=== PATIENT | female | born 1945 | race Caucasian/White ===

== ENCOUNTER → 2020-10-29 12:13 | Outpatient (CLI) | payer MEDICARE, SELFPAY ==
--- NOTE | ~2020-10-29 | MM_ITS ---
EXAMINATION: MM screening [facility] BI w jessi HISTORY: Screening mammogram TECHNIQUE: Craniocaudal and mediolateral oblique 3-D tomosynthesis images were obtained and synthetic 2-D images were generated. CAD analysis was submitted and interpreted. COMPARISON: 08/27/2019, 07/27/2018, 07/07/2017 BREAST PARENCHYMAL COMPOSITION: The breasts are heterogeneously dense, which may obscure small masses . FINDINGS: There is no evidence of suspicious mass, calcification, or architectural distortion to sugg est malignancy in either breast. There has been no suspicious interval change. IMPRESSION: 1. No mammographic evidence of malignancy. 2. Recommend routine screening mammography in one year. BI-RADS Category 1: Negative Reviewed, dictated and finalized at location A. CIATE DIRECTOR OF SALES
== END ==
PROVIDERS: PCP Family Medicine; Visit Provider Family Medicine
DX: Z12.31 Encounter for screening mammogram for malignant neoplasm of breast (principal)
CPT/HCPCS: 77063; 77067

== ENCOUNTER → 2020-12-11 10:19 | Outpatient (CLI) | payer MEDICARE, SELFPAY ==
--- NOTE | ~2020-12-11 | DEXA_ITS ---
Bone Density Report Name: Laverne Lewis Age: 75 Sex: Female Ethnicity: White Date of : 1945 Indication: postmenopausal osteoporosis; monitoring treatment; height loss; Referring Provider: Marek Mart Study: Bone densitometry was performed. Exam Date: December 11, 2020 Accession number: [id number] Bone Density: Region BMD T-score Z-score Classification AP Spine (L1, L2, L3) 0.738 -2.5 -0.2 Osteoporosis Femoral Neck (Left) 0.633 -1.9 0.1 Osteopenia Total Hip (Left) 0.771 -1.4 0.3 Osteopenia Femoral Neck (Right) 0.585 -2.4 -0.4 Osteopenia Total Hip (Right) 0.732 -1.7 0.0 Osteopenia Total Hip Mean 0.752 -1.6 0.2 Osteopenia World Health Organization criteria for BMD impression classify patients as: Normal (T-score at or above -1.0), Osteopenia (T-score between -1.0 and -2.5), or Osteoporosis (T-score at or below -2.5). 10-year Fracture Risk: FRAX not reported because: Some T-score for Spine Total or Hip Total or Femoral Neck at or below -2.5 Treated for osteoporosis Previous Exams: Region Exam Age BMD T-score BMD Change BMD Change Date g/cm2 vs Baseline vs Previous AP Spine(L1, L2, L3) 12/11/2020 75 0.738 -2.5 -0.100 0.083 05/12/2016 70 0.656 -3.3 -0.182 -0.018 06/11/2013 67 0.673 -3.1 -0.165 -0.063* 12/18/2010 65 0.737 -2.6 -0.101 0.010 06/12/2008 62 0.727 -2.6 -0.111 -0.054 10/01/2005 59 0.781 -2.2 -0.057 -0.057 07/31/2003 57 0.838 -1.6 Total Hip(Left) 12/11/2020 75 0.771 -1.4 0.028 0.022 05/12/2016 70 0.749 -1.6 0.006 0.034* 06/11/2013 67 0.714 -1.9 -0.028 -0.002 12/18/2010 65 0.716 -1.9 -0.027 -0.038* 06/12/2008 62 0.754 -1.5 0.011 -0.042* 10/01/2005 59 0.796 -1.2 0.054 0.054 07/31/2003 57 0.743 -1.6 Total Hip(Right) 12/11/2020 75 0.732 -1.7 -0.004 0.043* 05/12/2016 70 0.689 -2.1 -0.047 -0.038* 06/11/2013 67 0.727 -1.8 -0.009 -0.017 12/18/2010 65 0.744 -1.6 0.008 -0.019 06/12/2008 62 0.763 -1.5 0.027 -0.017 10/01/2005 59 0.779 -1.3 0.044 0.044 07/31/2003 57 0.736 -1.7 *Denotes significance at 95% confidence level, LSC for AP Spine = 0.022 g/cm2, LSC for Total Hip = 0.027 g/cm2 Clinical Information Provided by Patient:
== END ==
PROVIDERS: PCP Family Medicine; Visit Provider Physician Assistant
DX: Z78.0 Asymptomatic menopausal state (principal); M81.0 Age-related osteoporosis without current pathological fracture; M85.852 Other specified disorders of bone density and structure, left thigh; M85.851 Other specified disorders of bone density and structure, right thigh
CPT/HCPCS: 77080

== ENCOUNTER → 2022-01-22 08:08 | Outpatient (CLI) | payer MEDICARE, SELFPAY ==
--- NOTE | ~2022-01-22 | MR_ITS ---
EXAMINATION: MR lumbar spine wo [facility] EXAM DATE: 01/22/2022 08:36 INDICATION: Lumbar radiculopathy . TECHNIQUE: Multi-sequential, multiplanar MR images of the lumbar spine were obtained without contrast . Sagittal T1, T2, T2 fat saturation images. Axial T2 weighted images. Comparison is made to prior examination from 01/23/2016. FINDINGS: There is moderate to severe disc disease L3-S1, moderate at L2-3. The nerve roots below the conus medullaris are again clumped consistent with chronic arachnoiditis, no change in appearance. T here is 3 mm anterolisthesis L4 on L5, 3 mm retrolisthesis L5 on S1. Conus terminates at the L1 level . Paraspinal soft tissue is unremarkable. Level by level evaluation: T12-L1: Disc does not extend beyond the endplate margin. Facet arthropathy: None. Neural foraminal stenosis: No stenosis. Central canal stenosis: No stenosis. L1-L2: Disc does not extend beyond the endplate margin. Facet arthropathy: None. Neural foraminal stenosis: No stenosis. Central canal stenosis: No stenosis. L2-L3: There is a mild to moderate diffuse disc bulge. Facet arthropathy: Mild to moderate. Neural foraminal stenosis: Moderate right, mild left. Central canal stenosis: Mild. L3-L4: There is a moderate diffuse disc bulge. Facet arthropathy: Moderate to severe right, moderate left. Neural foraminal stenosis: Moderate right, mild to moderate left. Central canal stenosis: Moderate. L4-L5: There is a moderate diffuse disc bulge. Facet arthropathy: Moderate to severe right, mild to moderate left. Neural foraminal stenosis: Severe left, mild to moderate right. Central canal stenosis: Posterior decompression, laminotomies. L5-S1: There is a moderate diffuse disc bulge. Facet arthropathy: Moderate. Neural foraminal stenosis: No stenosis. Central canal stenosis: Moderate to severe right, moderate left. There has been noticeable progression in spondylosis compared to 2016. IMPRESSION: 1. L4-5 severe left neural foraminal stenosis. 2. Moderate to severe L3-S1 disc disease, progression compared to prior study. 3. Chronic arachnoiditis. Reviewed, dictated and finalized at location B.
== END ==
PROVIDERS: PCP Family Medicine; Visit Provider Nurse Practitioner Family
DX: M54.16 Radiculopathy, lumbar region (principal); M48.061 Spinal stenosis, lumbar region without neurogenic claudication; M51.87 Other intervertebral disc disorders, lumbosacral region; G03.1 Chronic meningitis
CPT/HCPCS: 72148

== ENCOUNTER → 2022-02-02 13:49 | Outpatient (CLI) | payer MEDICARE, SELFPAY ==
--- NOTE | ~2022-02-02 | MM_ITS ---
EXAMINATION: MM screening [facility] BI w jessi HISTORY: 10/29/2020, 08/2019, 07/27/2018 TECHNIQUE: Craniocaudal and mediolateral oblique 3-D tomosynthesis images were obtained and synthetic 2-D images were generated. CAD analysis was submitted and interpreted. COMPARISON: 10/29/2020, 08/2019, 07/27/2018 bilateral screening mammogram examinations BREAST PARENCHYMAL COMPOSITION: The breasts are heterogeneously dense, which may obscure small masses . FINDINGS: There is no evidence of suspicious mass, calcification, or architectural distortion to sugg est malignancy in either breast. There has been no suspicious interval change. IMPRESSION: 1. No mammographic evidence of malignancy. 2. Recommend routine screening mammography in one year. BI-RADS Category 1: Negative Reviewed, dictated and finalized at location A.
== END ==
PROVIDERS: PCP Family Medicine; Visit Provider Family Medicine
DX: Z12.31 Encounter for screening mammogram for malignant neoplasm of breast (principal)
CPT/HCPCS: 77063; 77067

== ENCOUNTER → 2023-04-05 14:43 | Outpatient (CLI) | payer MEDICARE, SELFPAY ==
--- NOTE | ~2023-04-05 | MM_ITS ---
EXAMINATION: MM screening [facility] BI w jessi HISTORY: Screening mammogram TECHNIQUE: Craniocaudal and mediolateral oblique 3-D tomosynthesis images were obtained and synthetic 2-D images were generated. CAD analysis was submitted and interpreted. COMPARISON: February 02, 2022, October 29, 2020, August 27, 2019 bilateral screening mammogram examinati ons BREAST PARENCHYMAL COMPOSITION: The breasts are heterogeneously dense, which may obscure small masses . FINDINGS: There is asymmetric density in the anterior inner left breast on craniocaudal view. Diagnos tic left mammogram is recommended, with ultrasound if required. Otherwise there is no evidence of suspicious mass, calcification, or architectural distortion to sugg est malignancy in either breast. There has been no other suspicious interval change. IMPRESSION: 1. Asymmetry in the anterior inner left breast on CC projection 2. Diagnostic left mammogram is recommended, with ultrasound if required BI-RADS Category 0: Incomplete: Needs additional imaging evaluation. Reviewed, dictated and finalized at location A.
== END ==
PROVIDERS: PCP Emergency Medicine; Visit Provider Nurse Practitioner Family
DX: Z12.31 Encounter for screening mammogram for malignant neoplasm of breast (principal); R92.8 Other abnormal and inconclusive findings on diagnostic imaging of breast
CPT/HCPCS: 77063; 77067

== ENCOUNTER 2023-04-30 09:27 | Outpatient (CLI) | payer MEDICARE, SELFPAY ==
--- NOTE | ~2023-04-30 | DEXA_ITS ---
Bone Density Report Name: PAPO CASTILLO Age: 77 Sex: Female Ethnicity: White Date of : 1945 Indication: postmenopausal; screening for osteoporosis; prior fracture; Referring Provider: ISAIAH VANEGAS Study: Bone densitometry was performed. Exam Date: April 30, 2023 Accession number: [id number] Bone Density: Region BMD T-score Z-score Classification AP Spine(L1-L4) 0.881 -1.5 1.0 Osteopenia Femoral Neck (Left) 0.546 -2.7 -0.6 Osteoporosis Total Hip (Left) 0.726 -1.8 0.1 Osteopenia Femoral Neck (Right) 0.590 -2.3 -0.2 Osteopenia Total Hip (Right) 0.722 -1.8 0.1 Osteopenia Total Hip Mean 0.724 -1.8 0.1 Osteopenia World Health Organization criteria for BMD impression classify patients as: Normal (T-score at or above -1.0), Osteopenia (T-score between -1.0 and -2.5), or Osteoporosis (T-score at or below -2.5). 10-year Fracture Risk: FRAX not reported because: Some T-score for Spine Total or Hip Total or Femoral Neck at or below -2.5 Treated for osteoporosis Clinical Information Provided by Patient: Has had a low trauma fracture Is being treated for osteoporosis Has used the following medications: Prolia (i.e. denosumab) Patient maximum height was 60 Menopause Age: 51 No regular weight bearing exercise Does not regularly consume dairy products Drinks caffeinated beverages Onset of menses at age 14 Number of children 2 Missed period for more than 6 months in a row Impression: The patient has established osteoporosis, based on the Left Femoral Neck T-score and the existence of a prior fracture. The patient has risk factors, including: previous fracture. Discussion: It is important to ask patients whether they are taking their medications and to encourage continued and appropriate compliance with their osteoporosis therapies to reduce fracture risk. It is also important to review their risk factors and encourage appropriate calcium and vitamin D intakes, exercise, fall prevention and other lifestyle measures. Follow-Up: Consider a repeat BMD and Vertebral Fracture Assessment (VFA) exam in 2 years or sooner if medically necessary, to reassess this patient's status. Reported by: JERMAINE on 04/30/2023 10:11:00 AM. Reviewed, dictated and finalized at location Inge TAO
== END 2023-04-30 09:28 | disposition home or self-care (01) ==
LOC: ANHIMG 09:29
PROVIDERS: PCP Emergency Medicine; Visit Provider Nurse Practitioner Family
DX: M81.0 Age-related osteoporosis without current pathological fracture (principal); Z78.0 Asymptomatic menopausal state; M85.89 Other specified disorders of bone density and structure, multiple sites
CPT/HCPCS: 77080

== ENCOUNTER → 2023-05-05 07:35 | Outpatient (CLI) | payer MEDICARE, SELFPAY ==
--- NOTE | ~2023-05-05 | MMUS_ITS ---
EXAMINATION: MM diagnostic [facility] LT w jessi, US breast LT complete HISTORY: Asymmetry reported in the anterior inner left breast on screening craniocaudal view of 2022 TECHNIQUE: Additional 3-D tomosynthesis images of the left breast were performed and synthetic 2-D im ages were generated. CAD analysis was submitted and interpreted. High resolution complete left breast ultrasound examination including all 4 quadrants and subareolar area was performed. COMPARISON: Serial screening mammogram examinations dating back to 08/27/2019 FINDINGS: MAMMOGRAPHIC FINDINGS: No suspicious mass, architectural distortion, malignant calcification, skin thickening or retraction is evident. No significant new or developing density is noted since 08/27/2019. ULTRASOUND: No suspicious mass or shadowing, cyst or other significant sonographic abnormality of the left breast is detected. IMPRESSION: 1. No mammographic evidence of malignancy 2. Routine annual mammographic screening is recommended. BI-RADS Category 1: Negative Reviewed, dictated and finalized at location A. IMPRESSION: 1. No mammographic evidence of malignancy 2. Routine annual mammographic screening is recommended. BI-RADS Category 1: Negative
== END ==
PROVIDERS: PCP Emergency Medicine; Visit Provider Physician Assistant
DX: R92.8 Other abnormal and inconclusive findings on diagnostic imaging of breast (principal)
CPT/HCPCS: 76641; 77061; 77065; G0279

== ENCOUNTER 2024-06-05 15:14 | Outpatient (CLI) | payer MEDICARE, SELFPAY ==
--- NOTE | ~2024-06-05 | MM_ITS ---
EXAMINATION: MM screening [facility] BI w jessi HISTORY: Screening TECHNIQUE: Craniocaudal and mediolateral oblique 3-D tomosynthesis images were obtained and synthetic 2-D images were generated. CAD analysis was submitted and interpreted. COMPARISON: Comparison to multiple prior studies sequentially, with oldest reviewed study dated 01/2018. BREAST PARENCHYMAL COMPOSITION: Dense: The breasts are heterogeneously dense, which may obscure small masses FINDINGS: There is no evidence of suspicious mass, calcification, or architectural distortion to sugg est malignancy in either breast. There has been no suspicious interval change. IMPRESSION: 1. No mammographic evidence of malignancy. 2. Recommend routine screening mammography in one year. BI-RADS Category 1: Negative Reviewed, dictated and finalized at location B.
== END 2024-06-05 15:15 ==
LOC: MICIMG 15:15
PROVIDERS: PCP Emergency Medicine; Visit Provider Emergency Medicine
DX: Z12.31 Encounter for screening mammogram for malignant neoplasm of breast (principal)
CPT/HCPCS: 77063; 77067

== ENCOUNTER 2025-05-07 10:39 | Outpatient (CLI) | payer MEDICARE, SELFPAY ==
--- NOTE | ~2025-05-07 | DEXA_ITS ---
Bone Density Report Name: PAPO CASTILLO Age: 79 Sex: Female Ethnicity: White Date of : 1945 Indication: osteopenia; monitoring treatment; Referring Provider: LUZ MARINA BARAJAS Study: Bone densitometry was performed. Exam Date: May 07, 2025 Accession number: [id number] Bone Density: Region BMD T-score Z-score Classification AP Spine(L2, L3, L4) 1.129 0.5 3.1 Normal Femoral Neck (Left) 0.612 -2.1 0.1 Osteopenia Total Hip (Left) 0.755 -1.5 0.4 Osteopenia Femoral Neck (Right) 0.615 -2.1 0.1 Osteopenia Total Hip (Right) 0.759 -1.5 0.5 Osteopenia Total Hip Mean 0.757 -1.5 0.5 Osteopenia World Health Organization criteria for BMD impression classify patients as: Normal (T-score at or above -1.0), Osteopenia (T-score between -1.0 and -2.5), or Osteoporosis (T-score at or below -2.5). 10-year Fracture Risk: FRAX not reported because: Treated for osteoporosis Previous Exams: Region Exam Age BMD T-score BMD Change BMD Change Date g/cm2 vs Baseline vs Previous AP Spine (L2-L4) 05/07/2025 79 1.129 0.5 0.189 (20.1%)* 0.189 (20.1%)* 04/30/2023 77 0.940 -1.3 Total Hip(Left) 05/07/2025 79 0.755 -1.5 0.029 (4.0%)* 0.029 (4.0%)* 04/30/2023 77 0.726 -1.8 Total Hip(Right) 05/07/2025 79 0.759 -1.5 0.037 (5.2%)* 0.037 (5.2%)* 04/30/2023 77 0.722 -1.8 *Denotes significance at 95% confidence level, LSC for AP Spine = 0.022 g/cm2, LSC for Total Hip = 0.027 g/cm2 Clinical Information Provided by Patient: Is being treated for osteoporosis Has used the following medications: Prolia (i.e. denosumab), Vitamin D Patient maximum height was 60 Menopause Age: 51 No regular weight bearing exercise Does not regularly consume dairy products Drinks caffeinated beverages Onset of menses at age 14 Number of children 2 Missed period for more than 6 months in a row Impression: The patient has low bone mass, based on the Left Femoral Neck T-score. No significant bone loss was observed. Discussion: PATIENT UNDER TREATMENT WITH NO SIGNIFICANT BMD LOSS SINCE LAST EXAM. In an untreated patient, BMD typically declines with age. A lack of decline or gain is usually a sign that treatment is efficacious and fracture risk is reduced. It is important to ask patients whether they are taking their medications and to encourage continued and appropriate compliance with their osteoporosis therapies to reduce fracture risk. It is also important to review their risk factors and encourage appropriate calcium and vitamin D intakes, exercise, fall prevention and other lifestyle measures. Follow-Up: Consider a repeat BMD and Vertebral Fracture Assessment (VFA) exam in 2 years or sooner if medically necessary, to reassess this patient's status. Reported by: TRAVON on 05/07/2025 11:18:00 AM. Reviewed, dictated and finalized at location A.
--- OUTSIDE RECORDS SUMMARY | 2025-05-07 10:57 | XMS_ITS | Clinical Summary ---
Author Organization [facility] Care Team Providers Care Early Education Teacher Name Role Phone Unavailable Primary Care Provider Unavailabl e Social History Tobacco Use Types Packs/Day Years Used Date Smoking Tobacco: Never Assessed Comments Unknown Sex and Gender Information Value Date Recorded Sex Assigned at Not on file Legal Sex Female 1:36 PM [employer]ER [employer]TER Gender Identity Not on file Sexual Orientation Not on file Plan of Treatment Health Maintenance Due Date Last Done Comments DEXA Bone Density 1945 Hepatitis C Virus (HCV) Screening 1945 Pneumococcal Immunization (50+ years) (1 of 1 - PCV) 1996 Respiratory Syncytial Virus (RSV) Immunization (Adult) (1 - 1-dose 75+ series) 2021 Influenza Immunization (#1) 06/24/202406/24, 06/18/2019, 07/19/2018, Additional history exists SARS-COV-2 Immunization ( season) 2024 08/18/2021, 12/30/2020, 11/27/2020 Zoster Immunization Completed 03/30/2018, 8 DTaP/Tdap/Td Immunization Discontinued 06/18/2019 TdaP Immunization Completed 06/18/2019 Hepatitis B Immunization Aged Out No longer eligible based on patient's age to complete this topic Meningococcal Immunization (ACWY) Aged Out No longer eligible based on patient's age to complete this topic Rotavirus Immunization Aged Out No lo nger eligible based on patient's age to complete this topic
--- OUTSIDE RECORDS SUMMARY | 2025-05-07 10:58 | XMS_ITS | Data Portability ---
Author Organization [place] - [facility], Main Office Address [address] [place] [address] Care Team Providers Care Laundry Helper Name Role Phone ELAYNE CORCORAN Primary Care Provider [phone] ELAYNE CORCORAN Referring Provider [phone] Assessment Encounter Date Assessment Date Assessment LastModified by Organization Details LastModified Time 04/30/2024 04/30/2024 patient has bilateral sacroiliac pain with low back pain and also left hip trochanteric bursitis. We talked about treatment options she wanted proceed with the cortisone therefore under sterile conditions I injected the patient's bilateral sacroiliac bursa and the left hip trochanteric bursa in the office with 4 cc 0.5% Marcaine and 20 mg of Kenalog each for a total of 3 injections. We will switch her to meloxicam 15 mg daily she has been on diclofenac a long time she would like to try something different. We will get her set up with a prescription for the meloxicam I will see her back in 3 months if necessary she voiced understanding and agrees above plan she will call for any further Problems difficulties or questions. 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 We talked about treatment options today in detail she would like to repeat the cortisone injections in the sacroiliac bursa bilaterally. Under sterile conditions I injected the patient's bilateral sacroiliac bursa in the office with 4 cc 0.5% bupivacaine and 20 mg of Kenalog each. The patient tolerated the procedures well. Her x-rays today did not show any acute findings, she does have significant lumbar degenerative changes without radiculopathy. If her symptoms worsen or change suddenly she is instructed to call otherwise I will see her back as needed we can do shots again in 3 months if necessary. She voiced understanding and agrees with the above plan she will call for any further problems difficulties or questions. Not available 07/24/2024 16:15:55 10/11/2024 10/11/2024 The patient has low back pain particularly the bilateral sacroiliac bursa regions she also has recurrent trochanteric bursitis of the left hip. At her request under sterile conditions I injected the patient's bilateral sacroiliac bursa and also the left hip trochanteric bursa in the office today with 4 cc of 0.5% bupivacaine and 20 mg of Kenalog each for a total of 3 injections. The patient tolerated the procedures well. I will see her back as needed we will see how she does with conservative measures she will continue, she voiced understanding and agreed with the above plan she will call for any further problems difficulties or questions. Not available 10/11/2024 15:36:19 01/24/2025 01/24/2025 The patient has chronic low back pain due to degenerative changes in lumbar spine she also has bilateral sacroiliac joint pain and left hip trochanteric bursitis chronically. At her request under sterile conditions I injected the patient's bilateral sacroiliac bursa and also the left hip trochanteric bursa in the office today with 4 cc of 0.5% bupivacaine and 20 mg of Kenalog each for a total of 3 injections. The patient tolerated all 3 injections well. I will see her back as needed she will continue with current conservative measures including stretching exercises and anti-inflammator y medication she will call for any further problems difficulties or questions. Not available 01/24/2025 11:34:25 04/25/2025 04/25/2025 The patient has chronic bilateral sacroiliac pain and also chronic trochanteric bursitis type pain of the left hip. Shots of cortisone every few months gave her good relief she would like to proceed therefore under sterile conditions I injected the patient's bilateral sacroiliac bursa and the left hip trochanteric bursa in the office with 4 cc of 0.5% bupivacaine and 20 mg of Kenalog each for a total of 3 injections. The patient tolerated all the injections well. She is going to consult with a spine surgeon to talk about other options. I will see her back as needed she will continue with stretching anti-inflammator y medication and other conservative measures. She voiced understanding agrees with the above plan if her symptoms worsen or change she will call. Not available 04/25/2025 11:53:34 Plan of Treatment Reminders Order Date Submit Date Provider Last Modified By Organization Details Last Modified Time Details Appointments Any 5 2024 10:30A PITER Winslow Not available Not available Not available Lab None recorded. Referral None recorded. Procedures injection /aspirati on joint/bur sa (PROC) 2024 025 [email or web address] In-Office Order, Internal Use Only DO Not Attach Compendium DO Not Attach Compendium, Do Not Delete/merge, [id number] 04/25/2025 11:11:41 injection /aspirati on joint/bur sa (PROC) 2024 025 [email or web address] In-Office Order, Internal Use Only DO Not Attach Compendium DO Not Attach Compendium, Do Not Delete/merge, [id number] 04/25/2025 11:11:41 injection /aspirati on joint/bur sa (PROC) 2024 025 [email or web address] In-Office Order, Internal Use Only DO Not Attach Compendium DO Not Attach Compendium, Do Not Delete/merge, [id number] 01/24/2025 10:59:32 injection /aspirati on joint/bur sa (PROC) 2024 025 [email or web address] In-Office Order, Internal Use Only DO Not Attach Compendium DO Not Attach Compendium, Do Not Delete/merge, [id number] 01/24/2025 10:59:33 injection /aspirati on joint/bur sa (PROC) 2023 024 [email or web address] In-Office Order, Internal Use Only DO Not Attach Compendium DO Not Attach Compendium, Do Not Delete/merge, [id number] 10/11/2024 15:09:37 injection /aspirati on joint/bur sa (PROC) 2023 024 [email or web address] In-Office Order, Internal Use Only DO Not Attach Compendium DO Not Attach Compendium, Do Not Delete/merge, [id number] 10/11/2024 15:21:49 injection /aspirati on joint/bur sa (PROC) 2023 024 [email or web address] In-Office Order, Internal Use Only DO Not Attach Compendium DO Not Attach Compendium, Do Not Delete/merge, [id number] 07/24/2024 15:24:10 injection /aspirati on joint/bur sa (PROC) - in office procedure , administe red by provider 2023 024 [email or web address] In-Office Order, Internal Use Only DO Not Attach Compendium DO Not Attach Compendium, Do Not Delete/merge, [id number] 04/30/2024 10:12:30 injection /aspirati on joint/bur sa (PROC) - in office procedure , administe red by provider 2023 024 [email or web address] In-Office Order, Internal Use Only DO Not Attach Compendium DO Not Attach Compendium, Do Not Delete/merge, [id number] 04/30/2024 10:51:16 Surgeries None recorded. Imaging XR, hip + pelvis, unilatera l 2024 025 [facility] [place], [address], [place], [address], 01/24/2025 11:43:29 XR, lumbar spine 2023 024 [facility] [place], [address], [place], [address], 07/24/2024 16:18:33 Medication Orders bupivacai ne HCl 0.5 % (5 mg/mL) injection solution 2024 025 [facility] [address], [address] [place], [address], 04/25/2025 11:55:06 Kenalog 10 mg/mL suspensio n for injection [address], [address], [place], [address], 04/25/2025 11:55:06 bupivacai ne HCl 0.5 % (5 mg/mL) injection solution [address], [address], [place], [address], 04/25/2025 11:55:06 Kenalog 10 mg/mL suspensio n for injection [address], [address], [place], [address], 04/25/2025 11:55:06 bupivacai ne HCl 0.5 % (5 mg/mL) injection solution [address], [address], [place], [address], 01/24/2025 11:43:29 Kenalog 10 mg/mL suspensio n for injection [address], [address], [place], [address], 01/24/2025 11:43:29 bupivacai ne HCl 0.5 % (5 mg/mL) injection solution [email or web address] [place] [address] [address], [address], [place], [address], 01/24/2025 11:43:29 Kenalog 10 mg/mL suspensio n for injection [address], [address], [place], [address], 01/24/2025 11:43:29 bupivacai ne HCl 0.5 % (5 mg/mL) injection solution 2023 024 [facility] [address], [address], [place], [address], 10/11/2024 16:09:46 Kenalog 10 mg/mL suspensio n for injection 2023 024 Not available 10/11/2024 16:09:46 bupivacai ne HCl 0.5 % (5 mg/mL) injection solution 2023 024 [facility] [address], [address], [place], [address], 10/11/2024 16:09:46 Kenalog 10 mg/mL suspensio n for injection 2023 024 [facility] [address], [address], [place], [address], 10/11/2024 16:09:46 bupivacai ne HCl 0.5 % (5 mg/mL) injection solution 2023 024 [facility] [address], [address], [place], [address], 07/24/2024 16:18:33 Kenalog 10 mg/mL suspensio n for injection 2023 024 [facility] [address], [address], [place], [address], 07/24/2024 16:18:33 Marcaine 0.5 % (5 mg/mL) injection solution 2023 024 [facility] [address], [address], [place], [address], 04/30/2024 12:14:44 Kenalog 10 mg/mL suspensio n for injection 2023 024 [facility] [address], [address], [place], [address], 04/30/2024 12:14:44 meloxicam 15 mg tablet 2023 024 [email or web address] [facility] [address], [address], [place], [address], 10/11/2024 15:06:10 Marcaine (PF) 0.5 % (5 mg/mL) injection solution 2023 024 [facility] [address], [address] , [place], [address], 04/30/2024 12:14:44 Kenalog 10 mg/mL suspensio n for injection 2023 024 [facility] [address], [address] [facility], [place], [address], 04/30/2024 12:14:44 Patient TargetsNo targets recorded. Patient InstructionsNo instructions recorded. Reason for Referral None Reported. Results Created Date Observation Date Name Description Value Unit Range Abnormal Flag Note LastModifiedBy Organization Detail LastModifiedTime 07/24/20 24 XR, lumba r spine No observ ation record ed. [facility] [place] [address], [place], [address], 07/24/2024 16:17:20 01/25/20 25 XR, hip + pelvi s, unila teral No observ ation record ed. [facility] [place] [address], [place], [address], 01/24/2025 11:35:35 Result Notes None recorded. Problems Name Problem SNOMED Code Status Onset Date Resolution Date Notes Provider Name and Address Organization Details Recorded Time Disorder of trunk 619988015 Active Not Available [facility] 3 12:45:09 Disorder of sacrum 58663143 Active Not Available [facility] 3 12:45:09 Spinal stenosis of lumbar region 44475272 Active Not Available [facility] 3 12:45:09 Pain of hip region 57090001 Active Not Available [facility] 3 12:45:09 Disorder of coccyx 73585195 Active Not Available [facility] 3 12:45:09 Trochanter ic bursitis of left hip 2263827697812 03 Active 2022 Fabiana Green, RMA null, [place] [facility] 3 10:29:31 Pain in left sacroiliac joint 0696794170518 9102 Active 2022 Fabiana Green RMA null, [place] [facility] 3 10:29:40 Pain in right sacroiliac joint 8038491397962 9107 Active 2022 Fabiana Green RMA null, [place] [facility] 3 10:29:47 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 Procedures Surgical History Date Name Laterality Status Provider Name and Address Organization Details Recorded Time 10/24/19 14 procedure on gallbladder completed Not Available [facility] 12/22/2022 12:44:53 Carpal tunnel surgery completed Not Available [facility] 12/22/2022 12:44:53 Cataract Surgery completed Not Available [facility] 12/22/2022 12:44:53 Imaging Results None recorded. Procedure Notes None recorded. Medical Equipment None Reported. Allergies Allergen ID Allergen Name Allergen Category Reaction Reaction Severity Criticality Documentation Date Start Date Code Code System Note Provider Name and Address Organization Details Recorded Time 91651 Substance with sulfonami de structure and antibacte rial mechanism of action (substanc e) medicatio n hives Not available Not available 12/22/2022 17574 8003 SNOMED Not Available [facility] 3 12:46:52 Medications Name Sig Start Date Stop Date Status Note LastModified by Organization Details LastModified Time cyclobenzap rine 10 mg tablet 08/10 completed Not Available Not Available Not Available amoxicillin 500 mg capsule TAKE 1 CAPSULE BY MOUTH THREE TIMES DAILY UNTIL GONE 05/17 completed Not Available Not Available Not Available prednisone 10 mg tablet TAKE 1 TABLET BY MOUTH THREE TIMES DAILY FOR 3 DAYS, THEN 1 TWICE DAILY FOR 2 DAYS, THEN 1 ONCE DAILY FOR 1 DAY 10/11 completed Not Available Not Available Not Available doxycycline hyclate 100 mg capsule TAKE 1 CAPSULE BY MOUTH TWICE DAILY FOR 10 DAYS 10/11 completed Not Available Not Available Not Available atorvastati n 20 mg tablet TAKE 1 TABLET BY MOUTH AT BEDTIME active Not Available Not Available No t Available clindamycin HCl 300 mg capsule TAKE 1 CAPSULE BY MOUTH THREE TIMES DAILY FOR 10 DAYS 05/17 completed Not Available Not Available Not Available azithromyci n 250 mg tablet 02/05 completed Not Available Not Available Not Available ofloxacin 0.3 % eye drops 10/11 completed Not Available Not Available Not Available benzonatate 200 mg capsule TAKE 1 CAPSULE BY MOUTH 2 TO 3 TIMES DAILY NEEDED 10/11 completed Not Available Not Available Not Available hydrocodone 5 mg-acetamin ophen 325 mg tablet 08/10 completed Not Available Not Available Not Available meloxicam 15 mg tablet TAKE 1 TABLET BY MOUTH ONCE DAILY 10/11 completed Not Available Not Available Not Available bupivacaine HCl 0.5 % (5 mg/mL) injection solution in office 2024 active Not Available Not Available Not Avai lable prednisone 20 mg tablet 10/11 completed Not Available Not Available Not Available prednisone 5 mg tablet TAKE 2 TABLETS BY MOUTH THREE TIMES DAILY FOR 3 DAYS 2 TABLET BY MOUTH TWICE DAILY FOR 2 DAYS 2 TABLET BY MOUTH FOR 1 DAY 12/26 completed Not Available Not Available Not Available tramadol 50 mg tablet TAKE 1 TABLET BY MOUTH EVERY 8 HOURS NEEDED FOR PAIN active Not Available Not Available No t Available triamcinolo ne acetonide 0.1 % topical cream 08/10 completed Not Available Not Available Not Available prednisone 10 mg tablets in a dose pack Take 1 tab by mouth, 3 times a day for 3 daysTake 1 tab by mouth 2 times a day for 2 daysTake 1 tab by mouth once a day for 1 day 10/11 completed Not Available Not Available Not Available alprazolam 0.5 mg tablet TAKE 1 TABLET BY MOUTH AT BEDTIME NEEDED FOR INSOMNIA active Not Available Not Available No t Available Guaiatussin AC 10 mg-100 mg/5 mL oral liquid 08/10 completed Not Available Not Available Not Available amoxicillin 875 mg tablet active Not Available Not Available Not Available citalopram 20 mg tablet 08/10 completed Not Available Not Available Not Available Kenalog 10 mg/mL suspension for injection in office [address] [facility]: [phone] Not Available Not Available Not Available hydrocodone 7.5 mg-acetamin ophen 325 mg tablet 12/26 completed Not Available Not Available Not Available erythromyci n 5 mg/gram (0.5 %) eye ointment 08/10 completed Not Available Not Available Not Available triamcinolo ne acetonide 0.1 % topical ointment APPLY TOPICALLY DAILY 10/11 completed Not Available Not Available Not Available gabapentin 300 mg capsule TAKE 1 CAPSULE BY MOUTH IN THE MORNING AND 2 AT BEDTIME active Not Available Not Available No t Available diclofenac sodium 75 mg tablet,massimo yed release TAKE 1 TABLET BY MOUTH ONCE DAILY NEEDED FOR MODERATE PAIN active Not Available Not Available No t Available hydroxyzine HCl 25 mg tablet TAKE 1 TO 2 TABLETS BY MOUTH ONCE DAILY IN THE MORNING AND 1 TO 2 ONCE DAILY AT BEDTIME NEEDED 10/11 completed Not Available Not Available Not Available diclofenac sodium 50 mg tablet,massimo yed release TAKE 1 TABLET BY MOUTH ONCE DAILY NEEDED FOR PAIN 05/17 completed Not Available Not Available Not Available ergocalcife rol (vitamin D2) 1,250 mcg (50,000 unit) capsule TAKE 1 CAPSULE BY MOUTH EVERY OTHER WEEK active Not Available Not Available No t Available methylpredn isolone 4 mg tablets in a dose pack TAKE BY MOUTH DIRECTED ON INSIDE OF PACKAGE 05/17 completed Not Available Not Available Not Available albuterol sulfate HFA 90 mcg/actuati on aerosol inhaler INHALE 1-2 PUFFS EVERY 4 HOURS NEEDED FOR WHEEZING 10/11 completed Not Available Not Available Not Available cefdinir 300 mg capsule 10/11 completed Not Available Not Available Not Available fluticasone propionate 50 mcg/actuati on nasal spray,suspe nsion 12/26 completed Not Available Not Available Not Available amoxicillin 875 mg-potassiu m clavulanate 125 mg tablet TAKE 1 TABLET BY MOUTH EVERY 12 HOURS 05/17 completed Not Available Not Available Not Available Marcaine (PF) 0.5 % (5 mg/mL) injection solution Take 20 mg by injection route. 2023 active Not Available Not Available Not Avai lable duloxetine 30 mg capsule,del ayed release TAKE 1 CAPSULE BY MOUTH ONCE DAILY active Not Available Not Available No t Available lidocaine (PF) 10 mg/mL (1 %) injection solution In office injection administe red by the provider 05/[address] [facility]: [phone] Not Available Not Available Not Available lidocaine (PF) 20 mg/mL (2 %) intravenous solution Inject 160 mg by intraveno us route. 05/17 completed Not Available Not Available Not Available Adacel (Tdap Adolesn/Siva lt)(PF)2 Lf-(2.5-5-3 -5)-5 Lf/0.5 mL IM syringe 12/26 completed Not Available Not Available Not Available ropivacaine (PF) 5 mg/mL (0.5 %) injection solution Take 20 mg by injection route. 10/[address] [facility] [phone] Not Available Not Available Not Available Shingrix (PF) 50 mcg/0.5 mL intramuscul ar suspension, kit 08/10 completed Not Available Not Available Not Available Fluzone High-Dose (PF) 180 mcg/0.5 mL intramuscul ar syringe 08/10 completed Not Available Not Available Not Available Flublok Quad (PF) 180 mcg (45 mcg x 4)/0.5 mL IM syringe 12/26 completed Not Available Not Available Not Available Paxlovid 300 mg (150 mg x 2)-100 mg tablets in a dose pack TAKE 3 TABLETS TOGETHER (TWO 150 MG NIRMATREL VIR TABLETS AND ONE 100 MG RITONAVIR TABLET) BY MOUTH TWICE DAILY FOR 5 DAYS. . HOLD XANAX AND ATORVASTA TIN WHILE TAKING THIS MEDICATIO N 10/11 completed Not Available Not Available Not Available Vitals Date Recorded Body height Body mass index (BMI) Body weight Provider Name and Address Organization Details Last Updated DateTime 01/24/2025 149.86 cm 25.2 kg/m2 27636.05 g Dia Varela CNA [facility] [employer] 01/24/2025 10:56:26 Date Recorded Body height Body mass index (BMI) Body weight Provider Name and Address Organization Details Last Updated DateTime 04/25/2025 149.86 cm 27.3 kg/m2 86846.97 g Isha Flower [facility] [employer] 04/25/2025 11:07:29 Date Recorded Body height Body mass index (BMI) Body weight Provider Name and Address Organization Details Last Updated DateTime 04/30/2024 152.4 cm 24.4 kg/m2 50099.05 g Dia Varela CNA [facility] [employer] 04/30/2024 10:11:02 Date Recorded Body height Body mass index (BMI) Body weight Provider Name and Address Organization Details Last Updated DateTime 07/24/2024 152.4 cm 24 kg/m2 66727.86 g Dia Varela CNA [facility] [employer] 07/24/2024 15:20:53 Date Recorded Body height Body mass index (BMI) Body weight Provider Name and Address Organization Details Last Updated DateTime 10/11/2024 152.4 cm 24.4 kg/m2 92049.05 g Flor Long [facility] [employer] 10/11/2024 15:05:16 Social History Question Answer Notes LastModified by Organizat ion Details LastModified Time Tobacco Smoking Status Never Smoker JUAN PABLO Steven [facility] [employer] 04/25/2025 11:23:27 What Was The Date Of Your Most Recent Tobacco Screening? 04/25/2025 [email or web address] Information not available 04/25/2025 Sex: Unknown Functional Status None recorded. Mental Status None recorded. Family History Nothing Reported. Medical History Condition Response SKIN PROBLEMS Y ARTHRITIS Y OSTEOPOROSIS Y USE OF NSAIDS Y Gynecological HistoryNo gynecological history recorded. Obstetrics History GPAL:G 0 P 0 0 0 0 Past Encounters Encounter ID Performer Location Encounter Start Date Encounter Closed Date Diagnosis/Indication Diagnosis SNOMED-CT Code Diagnosis ICD10 Code Diagnosis Note [id number] PITER Everett [facility] [place] [address] [place] [address] 12/26/2020 00:00:00 12/26/2020 15:22:07 [id number] PITER Everett [facility] [place] [address] [place] [address] 07/20/2021 00:00:00 07/20/2021 11:22:40 [id number] Abimale Williamson MD [facility] [place] [address] [place] [address] 09/03/2021 00:00:00 09/03/2021 15:42:15 [id number] Abimael Williamson MD [facility] [place] [address] [place] [address] 02/05/2022 00:00:00 02/05/2022 16:00:51 [id number] Abimael Williamson MD [facility] [place] [address] [place] [address] 06/07/2022 00:00:00 06/07/2022 12:20:34 [id number] Abimael Williamson MD [facility] [place] [address] [place] [address] 10/07/2022 00:00:00 10/07/2022 14:55:52 [id number] Abimael Williamson MD [facility] [place] 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 [place] [address] 12/12/2023 10:34:38 12/12/2023 11:19:43 Pain in left sacroiliac joint 1009944957 5633020 M53.3 Bilateral sacroiliac joint pain 3182538248 9595597 M53.3 Pain of le ft hip joint 6641553563 73642 M25.552 Trochanter ic bursitis of left hip 4501604961 09129 M70.62 [id number] Darwin Rob MD [facility] [place] 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 [place] [address] 04/25/2025 11:05:27 04/25/2025 11:25:49 Bilateral sacroiliac joint pain [id number] 2433811 M53.3 Spinal michael nosis of lumbar region 77976472 M48.061 Trochanter ic bursitis of left hip [id number] 92433 M70.62 Health Concerns Section Related Observation LastModified by Organization Detai ls LastModified Time None Recorded Concern Status LastModified by Organization Details LastModified Time None Recorded Advance Directives Directive None Recorded Payers Insurance Date Sequence Insurance Name Policy Number Policy Castellanos Covered Member ID Castellanos Member ID Guarantor Name 04/23/2025 1 [employer] (MEDICARE REPLACEMENT/ ADVANTAGE - PPO) [id number] 1 Laverne Lewis [id number] Laverne Lewis 10/11/[address] [facility] (MEDICARE REPLACEMENT/ ADVANTAGE - PPO) [id number] Laverne Lewis [id number] Laverne Lewis Notes Date Note Type Note Provider Name and Address Organization Details Recorded Time 04/30/2024 text/html Patient returns complaining of bilateral sacroiliac pain and left trochanteric pain. She has had chronic issues with all the above she comes in every 3 months for cortisone injections it has been 3 months since her last sacroiliac injections bilaterally. This helps quite a bit she denies any bowel or bladder symptoms no weakness no numbness or tingling or radicular pain down the legs she has some tenderness over the left trochanteric region no trauma or injury no erythema heat effusion no signs of infection no groin or hip joint pain. She comes in today requesting injections all 3 sites. She would also like to try a different anti-inflammatory medication. [facility] [address], [place], [address], [place] 04/30/2024 10:55:49 07/24/2024 text/html patient returns complaining of low back pain she has had previous cortisone injections for her lumbar sacroiliac region and also for her left hip trochanteric bursitis. She states 3 months ago the shots gave her good relief for the left hip bursitis, this has continued to work well for her. Her back however is bothering her again the pain comes and goes previous x-rays have shown significant lumbar spondylosis. She really has no new problems just recurrence of her continuing low back pain shots of cortisone typically give her some good relief for a few months at a time in the sacroiliac bursa regions. She today has pain about a 5 to a 6 on a scale of 1-10 denies any bowel or bladder symptoms no radicular pain numbness or tingling or weakness in the lower extremities. We are getting new updated x-rays of her lumbar spine today. She comes in today requesting repeat cortisone injections bilateral sacroiliac bursa. [facility] [address], [place], [address], [place] 07/24/2024 16:18:13 10/11/2024 text/html Patient returns complaining of low back pain chronic in nature I have seen her for this multiple times she comes in every few months for cortisone injections in the sacroiliac bursa bilaterally which gave her good relief. 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 Previous x-rays show significant [id number] degenerative disc disease of L2-3 and L5-S1 with marginal osteophytes and degenerative levoscoliosis. She denies any radicular pain down the legs no weakness no bowel or bladder symptoms numbness or tingling. She does have tenderness over the trochanteric region particularly bothers her when she 1st gets out of bed in the morning through the day gets a little better but she is having more pain that is persistent in nature and would like another shot of cortisone there as well. The patient states she can not stand or walk for long periods short distances are fine but if it is more than a block her back starts to bother her and she has to stop and rest. She has no weakness in the hip abductors. States her pain is about a 7 on a scale of 1-10 despite conservative measures on her own at home her symptoms continue. The patient has no groin pain no significant hip osteoarthritis no loss of motion in the left hip. New past medical history sheet was reviewed and signed on the intake sheet of today's date drug allergies current medications family social history previous surgical history 10 point review of systems was reviewed and discussed in detail today with the patient.Today I reviewed the patient's previous x-rays with her in detail that were done in June of this year. [facility] [address] [place] [address], [place] [address], [place], [address], [place] [facility] 10/11/2024 15:38:44 01/24/2025 text/html The patient retu rns complaining of left hip over the trochanteric region as well as bilateral sacroiliac pain. She has known advanced degenerative lumbar spine disease she does take diclofenac daily and gets by with conservative measures every now and then she comes in for cortisone injections. I have treated her for this for several years now she gets injections in her lumbar region in the bilateral sacroiliac region she also has recurrent left hip trochanteric bursitis type pain. We are getting new x-rays of her left hip today it has been several years since her last x-rays. She denies any new problems no new trauma or injury she does have some chronic radicular pain down the right leg, she has seen a spine surgeon previously and has had previous minimally invasive surgery for decompression of nerve roots couple of times this helped quite a bit. Over the years her pain has returned somewhat for the most part it is livable she gets by with injections and medication she would like repeat injections all 3 sites today. [facility] [address], [facility] [address], [place], [address], [place] 01/24/2025 11:36:54 04/25/2025 text/html the patient retu rns with bilateral sacroiliac pain and left hip trochanteric bursitis type pain. This is chronic for her she comes in every few months for cortisone. This typically gives a pretty good relief it has been 3 months since her last injections. She does have chronic degenerative changes in lumbar spine that are quite significant she does get some mild radicular pain particularly down the left side again this is chronic in nature. She has had previous nerve ablations and lumbar epidural steroid injections. She has some spinal stenosis of the lumbar spine she is considering seeing a spine surgeon for another evaluation to see if there is any other options for her that our not major surgical interventions. She has had minimally invasive surgery for decompression of nerve roots and this has helped in the past. She gets by with conservative measures including medication and injections she would like to repeat those today denies any new symptoms no bowel or bladder symptoms weakness or significant numbness or tingling today. Her pain is about an 7 on a scale of 1-10 by her report. [facility] [address], [facility] [address], [place], [address], [place] 04/25/2025 11:54:54 OBGyn Episode No OBEpisode recorded.
== END 2025-05-07 10:40 | disposition home or self-care (01) ==
LOC: ANHIMG 10:44
PROVIDERS: PCP Family Medicine; Visit Provider Family Medicine
DX: M85.88 Other specified disorders of bone density and structure, other site (principal); Z78.0 Asymptomatic menopausal state
CPT/HCPCS: 77080

== ENCOUNTER 2025-06-06 13:39 | Outpatient (CLI) | payer MEDICARE, SELFPAY ==
--- NOTE | ~2025-06-06 | MM_ITS ---
EXAMINATION: MM screening nathan BI w jessi HISTORY: Screening TECHNIQUE: Craniocaudal and mediolateral oblique 3-D tomosynthesis images were obtained and synthetic 2-D images were generated. CAD analysis was submitted and interpreted. COMPARISON: Comparison to multiple prior studies sequentially, with oldest reviewed study dated 01/2019. BREAST PARENCHYMAL COMPOSITION: Dense: The breasts are heterogeneously dense, which may obscure small masses FINDINGS: There is no evidence of suspicious mass, calcification, or architectural distortion to sugg est malignancy in either breast. There has been no suspicious interval change. IMPRESSION: 1. No mammographic evidence of malignancy. 2. Recommend routine screening mammography in one year. BI-RADS Category 1: Negative Reviewed, dictated and finalized at location A.
== END 2025-06-06 13:40 | disposition home or self-care (01) ==
LOC: MICIMG 13:40
PROVIDERS: PCP Family Medicine; Visit Provider Family Medicine
DX: Z12.31 Encounter for screening mammogram for malignant neoplasm of breast (principal)
CPT/HCPCS: 77063; 77067

== ENCOUNTER → 2025-06-10 11:44 | Outpatient (CLI) | payer MEDICARE, SELFPAY ==
--- NOTE | ~2025-06-10 | XR_ITS ---
EXAM/ PROCEDURE: XR shoulder RT min 2V - 06/10/2025 11:55 CDT HISTORY: 79 years old Female with M25.511 - Pain in right shoulder COMPARISON: None available TECHNIQUE: Three view(s) FINDINGS/ IMPRESSION: There are no fractures or dislocations.Joint space narrowing, subchondral sclerosis, subchondral cyst formation and osteophyte formation, compatible with mild osteoarthritis. Reviewed, dictated and finalized at location A.
== END ==
PROVIDERS: PCP Family Medicine; Visit Provider Family Medicine
DX: M25.511 Pain in right shoulder (principal)
CPT/HCPCS: 73030